=== PATIENT | male | born 1970 | race Caucasian/White ===

== ENCOUNTER 2016-11-26 16:44 | Emergency (ER) | payer BC ==
[2016-11-26 16:50] VITALS: BP 120/72
[2016-11-26] MEDS ORDERED: Tetan/Diph/Pertus SYR(Tdap)* 0.5 ML SYR(BOOSTRIX) use SYR IM ONE (16:58)
[2016-11-26] MEDS ORDERED: Lidocaine/Epineph/Tetraca SOL* (LET solution) 4 ML BTL TOPICAL ONE (17:05)
--- NOTE | 2016-11-26 17:59 | UC ---
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 NO PAIN WITH WEIGHT BEARING. TETANUS UNKNOWN - History Of Current Complaint Chief Complaint: UCLaceration Stated Complaint: LEG LAC Time Seen by Provider: 11/26/16 16:45 Hx Obtained From: Patient Mechanism Of Injury: Blunt Trauma Onset/Duration: Sudden Onset, Lasting Hours, Still Present Severity: Mild Aggravating Factors: Nothing - Allergies/Home Medications Allergies/Adverse Reactions: Allergies Allergy/AdvReac Type Severity Reaction Status Date / Time Penicillins [PCN] Allergy Unknown Verified 11/26/16 16:50 Reaction Details Home Medications: Home Medications NK [No Home Medications Reported] 11/26/16 [History Confirmed 11/26/16] PMH/Surg Hx/FS Hx/Imm Hx Previously Healthy: Yes - Surgical History Surgical History: Yes Surgery Procedure, Year, and Place: T&A - Family History Known Family History: Negative: Blood Disorder - Social History Occupation: Employed Full-time Lives: With Family Alcohol Use: Occasionally Substance Use Type: Marijuana Substance Use Comment - Amount & Last Used: WEEKLY Smoking Status (MU): Never Smoked Tobacco Review of Systems Constitutional: Negative Skin: Other - LACERATION LEFT LEG Eyes: Negative ENT: Negative Respiratory: Negative Cardiovascular: Negative Gastrointestinal: Negative Genitourinary: Negative Motor: Negative Neurovascular: Negative Musculoskeletal: Negative Neurological: Negative Psychological: Negative All Other Systems Reviewed And Are Negative: Yes Physical Exam Triage Information Reviewed: Yes Appearance: Well-Appearing, No Pain Distress, Well-Nourished Vital Signs: Initial Vital Signs Temp 98.4 F 11/26/16 16:47 Pulse 77 11/26/16 16:47 Resp 18 11/26/16 16:47 BP 120/72 11/26/16 16:47 Pulse Ox 100 11/26/16 16:47 Vital Signs Reviewed: Yes Eye Exam: Normal ENT Exam: Normal Dental Exam: Normal Neck exam: Normal Neck: Positive: Supple, Nontender Respiratory Exam: Normal Respiratory: Positive: Chest non-tender, Lungs clear, Normal breath sounds Cardiovascular Exam: Normal Cardiovascular: Positive: RRR, No Murmur Abdominal Exam: Normal Musculoskeletal Exam: Normal Musculoskeletal: Positive: Strength Intact, ROM Intact Neurological Exam: Normal Psychological Exam: Normal Skin: Positive: Other - LACERATION LEFT ANTERIOR LEG Laceration Repair - Laceration Repair 1 Description: Linear Laceration Size After Repair: Length (cm) - 4, Width (mm) - 3, Depth (mm) - 3 Type Injection: Local - LET TOPICAL Cleansing Completed Via Routine Prep: Yes Irrigation With Pressure Irrigation Device: Yes Closure Material: [place] - 4 Suture Of: Skin, SQ Laceration Course/Dx - Differential Dx - Laceration/Wound Differental Diagnoses: Cellulitis, Fracture, Laceration, Tendon Laceration Provider Diagnoses: LACERATION LEFT ANTERIOR LEG WITH REPAIR; TETANUS PROPHYLAXIS Discharge - Discharge Plan Condition: Stable Disposition: HOME Patient Education Materials: Laceration (ED), Staple Care (ED) Referrals: [facility] [Outside] No Primary Care Phys,NOPCP [Primary Care Provider] - Additional Instructions: PLEASE HAVE SUHAIL REMOVED IN TEN DAYS
== END 2016-11-26 17:50 | disposition home or self-care (01) ==
LOC: UCEAST 16:44
DX: S81.812A Laceration without foreign body, left lower leg, initial encounter (principal); W19.XXXA Unspecified fall, initial encounter; Y93.89 Activity, other specified; Y92.9 Unspecified place or not applicable; Z23 Encounter for immunization; Z88.0 Allergy status to penicillin; F12.90 Cannabis use, unspecified, uncomplicated
CPT/HCPCS: 12002; 90471; 90715; 99201; G0463

== ENCOUNTER 2016-12-07 10:33 | Emergency (ER) | payer BC ==
[2016-12-07 10:55] VITALS: BP 121/73
--- NOTE | 2016-12-07 13:01 | UC ---
Laceration HPI - HPI Summary HPI Summary: pt sustained lac 11 days ago while getting onto his boat. 4 jasiel were placed here 11 days ago. pt here for removal. no f/c/redness, swelling increased pain, heat or drainage. pt is slightly anxious that jasiel will hurt as much coming out as they did will going in. - History Of Current Complaint Chief Complaint: UCSkin Stated Complaint: STAPLE REMOVAL Time Seen by Provider: 12/07/16 11:13 Hx Obtained From: Patient Laceration Location: Wrist - butts Mechanism Of Injury: Sharp Trauma Onset/Duration: Sudden Onset Severity: Moderate Pain Intensity: 0 Pain Scale Used: 0-10 Numeric Aggravating Factors: Nothing - Allergies/Home Medications Allergies/Adverse Reactions: Allergies Allergy/AdvReac Type Severity Reaction Status Date / Time Penicillins [PCN] Allergy Unknown Verified 12/07/16 10:53 Reaction Details PMH/Surg Hx/FS Hx/Imm Hx Previously Healthy: Yes - Surgical History Surgical History: Yes Surgery Procedure, Year, and Place: T&A - Family History Known Family History: Positive: Hypertension Negative: Cardiac Disease, Diabetes, Blood Disorder - Social History Occupation: Employed Full-time Lives: With Family Alcohol Use: Occasionally Substance Use Type: Marijuana Substance Use Comment - Amount & Last Used: WEEKLY Smoking Status (MU): Never Smoked Tobacco Review of Systems Constitutional: Negative Skin: Other - healing lac Respiratory: Negative Cardiovascular: Negative Gastrointestinal: Negative Neurological: Negative All Other Systems Reviewed And Are Negative: Yes Physical Exam Triage Information Reviewed: Yes Appearance: Well-Appearing, No Pain Distress, Well-Nourished Vital Signs: Initial Vital Signs Temp 97.8 F 12/07/16 10:53 Pulse 77 12/07/16 10:53 Resp 16 12/07/16 10:53 BP 121/73 12/07/16 10:53 Pulse Ox 100 12/07/16 10:53 Vital Signs Reviewed: Yes Eyes: Positive: Conjunctiva Clear. Negative: Discharge ENT: Positive: Hearing grossly normal. Negative: Muffled/hoarse voice Neck: Positive: Supple Respiratory: Positive: Lungs clear, Normal breath sounds, No respiratory distress, No accessory muscle use Cardiovascular: Positive: RRR, No Murmur Musculoskeletal Exam: Normal Neurological: Positive: Alert, Muscle Tone Normal Psychological: Positive: Age Appropriate Behavior Skin: Positive: Other - 4 jasiel removed without complication from at rt butts. wound edges are clean, dry, well approximated. no redness, drainage, swelling , calor or dehiscience noted. Laceration Course/Dx - Differential Dx - Laceration/Wound Provider Diagnoses: staple removal Discharge - Discharge Plan Condition: Stable Disposition: HOME Patient Education Materials: Stitches Removal (ED) Referrals: No Primary Care Phys,NOPCP [Primary Care Provider] -
== END 2016-12-07 11:40 | disposition home or self-care (01) ==
LOC: UCEAST 10:33
DX: Z48.02 Encounter for removal of sutures (principal); F12.10 Cannabis abuse, uncomplicated

== ENCOUNTER 2018-08-14 10:35 | Emergency (ER) | payer BC ==
[2018-08-14] MEDS ORDERED: Ondansetron INJ* 2 MG/ML VIAL IV ONE (10:52)
[2018-08-14] MEDS ORDERED: Ketorolac INJ* 30 MG/ML 1 ML VIAL IV PUSH ONE (10:52)
[2018-08-14] MEDS ORDERED: NS 0.9% 1000 ML** 1,000 ML IV ONE (10:52)
[2018-08-14] MEDS ORDERED: Morphine 4 MG/ML VIAL (1 ml) 4 MG/ML VIAL IV ONE (10:53)
--- NOTE | 2018-08-14 10:58 | ED ---
Back Pain - HPI Summary HPI Summary: Pt. is a 47 y.o male who presents to the ER for right flank pain that started acutely this morning. Pt. states he was not feeling well yesterday and then today developed severe right flank pain and vomiting. Denies chest pain, SOB, fever. Notes his urine was darker this past week. No past medical hx. Sxs are moderate in severity. Pain is constant without modifying factors. - History of Current Complaint Chief Complaint: EDFlankPain Stated Complaint: I THINK I HAVE APPENDICITIS PER PT Time Seen by Provider: 08/14/18 10:46 Pain Intensity: 10 - Allergies/Home Medications Allergies/Adverse Reactions: Allergies Allergy/AdvReac Type Severity Reaction Status Date / Time Penicillins Allergy Unknown See Comment Verified 08/16/18 09:31 pseudoephedrine Allergy Unknown Unknown Verified 08/16/18 09:31 [From Sudafed] Reaction Details Sulfa (Sulfonamide Allergy Unknown Unknown Verified 08/16/18 09:31 Antibiotics) Reaction Details PMH/Surg Hx/FS Hx/Imm Hx Previously Healthy: Yes - Surgical History Surgery Procedure, Year, and Place: T&A Infectious Disease History: No Infectious Disease History: Denies: History Other Infectious Disease, Traveled Outside the [place] in Last 30 Days - Family History Known Family History: Positive: Hypertension Negative: Cardiac Disease, Diabetes, Blood Disorder - Social History Occupation: Employed Full-time Lives: With Family Alcohol Use: Occasionally Substance Use Type: Reports: Marijuana Substance Use Comment - Amount & Last Used: WEEKLY Smoking Status (MU): Never Smoked Tobacco Review of Systems Constitutional: Negative Negative: Fever, Chills Cardiovascular: Negative Negative: Palpitations, Chest Pain Respiratory: Negative Negative: Shortness Of Breath, Cough Positive: Abdominal Pain, Vomiting, Nausea. Negative: Diarrhea Positive: other - dark urine All Other Systems Reviewed And Are Negative: Yes Physical Exam Triage Information Reviewed: Yes Vital Signs On Initial Exam: Initial Vitals Temp Pulse Resp BP Pulse Ox 96.5 F 58 19 140/82 100 08/14/18 10:35 08/14/18 10:35 08/14/18 10:35 08/14/18 10:35 08/14/18 10:35 Vital Signs Reviewed: Yes Appearance: Positive: Pain Distress - Pt. moving around on stretcher, very uncomfortable. present. Nontoxic. Skin: Positive: Warm, Dry Head/Face: Positive: Normal Head/Face Inspection Eyes: Positive: Normal, EOMI, [place] Neck: Positive: Supple Respiratory/Lung Sounds: Positive: Clear to Auscultation, Breath Sounds Present Cardiovascular: Positive: Normal, RRR Abdomen Description: Positive: Nontender, Soft, Other: - Right CVA tenderness Neurological: Positive: Normal, CN Intact II-III Psychiatric: Positive: Affect/Mood Appropriate Diagnostics - Vital Signs Vital Signs Temp Pulse Resp BP Pulse Ox 08/14/18 10:35 96.5 F 58 19 140/82 100 - Laboratory Result Diagrams: 08/14/18 11:29 08/14/18 11:28 Lab Statement: Any lab studies that have been ordered have been reviewed, and results considered in the medical decision making process. Back Pain Course/Dx - Course Course Of Treatment: Pt. presenting with severe right flank pain and N/V. Suspect urolithiasis. Pt. started on IV fluids and pain medications. Pending labs and CT scan. CT scan shows 1. right proximal ureteral stone with hydro, 2. diverticulosis, 3. enlraged prostate. Labs are unremarkable. U/S shows RBCs without signs of infection. On re-exam pt. is resting comfortably and pain has greatly improved. Results discussed. Will dc home with percocet, flomax and zofran. To strain urine. Increase fluids. TO f.u with uro. if pain persist. To return to ER for uncontrollable pain, vomiting, fever, or if concerned. Pt. and understand and agree with plan. - Diagnoses Differential Diagnosis/HQI/PQRI: Positive: Renal Colic, Strain, Sprain Provider Diagnoses: Urolithiasis, Hydronephrosis Discharge - Sign-Out/Discharge Documenting (check all that apply): Patient Departure Patient Received Moderate/Deep Sedation with Procedure: No - Discharge Plan Condition: Improved Disposition: HOME Prescriptions: Ondansetron TAB* [Zofran 4 MG Tab*] 4 mg PO Q6H PRN #12 tab PRN Reason: Nausea oxyCODONE/Acetamin 5/325 MG* [Percocet 5/325 TAB*] 1 tab PO Q6H PRN #12 tab MDD 4 PRN Reason: Pain Tamsulosin CAP* [Flomax CAP*] 0.4 mg PO DAILY #5 cap Patient Education Materials: Kidney Stones (ED) Referrals: Mary Alice Lucio MD [Primary Care Provider] - Ming Antonio MD [Medical Doctor] - Additional Instructions: Follow up with urology if pain persist Strain urine Medication as directed Increase fluids Return to ER for uncontrollable pain/vomiting, fever, or if concerned - Billing Disposition and Condition Condition: IMPROVED Disposition: Home
[2018-08-14 11:49] LABS: ABS Basophils 0.1 10^3/ul (0-0.2); ABS Eosinophils 0.3 10^3/ul (0-0.6); ABS Lymphocytes 0.9 10^3/ul (1.0-4.8); ABS Monocytes 0.6 10^3/ul (0-0.8); ABS Neutrophils 8.7 10^3/ul (1.5-7.7); ABS Nucleated RBC 0 10^3/ul; Eosinophil % 2.4 %; Hematocrit 43 % (42-52); Hemoglobin 14.4 g/dL (14.0-18.0); Mean Corpuscular HGB Conc 33 g/dL (31-36); Mean Corpuscular Hemoglobin 31 pg (27-31); Mean Corpuscular Volume 92 fL (80-94); Mean Platelet Volume 8.4 fL (7.4-10.4); Nucleated Red Blood Cells % 0; Platelet Count 259 10^3/uL (150-450); Red Blood Count 4.72 10^6 /uL (4.18-5.48); Red Cell Distribution Width 13 % (10.5-15); White Blood Count 10.6 10^3/uL (3.5-10.8)
[2018-08-14 11:53] LABS: ALT 11 U/L (7-52); AST 14 U/L (13-39); Albumin 4.3 g/dL (3.2-5.2); Albumin/Globulin Ratio 1.9 (1-3); Alkaline Phosphatase 46 U/L (34-104); Anion Gap 6 mmol/L (2-11); BUN/Creatinine Ratio 13.6 (8-20); Blood Urea Nitrogen 14 mg/dL (6-24); C Reactive Protein < 1.00 mg/L (<8.01); CO2 Carbon Dioxide 27 mmol/L (22-32); Calcium 9.1 mg/dL (8.6-10.3); Chloride 110 mmol/L (101-111); EGFR African American 92.9 (>60); EGFR Non-African American 76.8 (>60); Globulin 2.3 g/dL (2-4); Glucose 120 mg/dL (70-100); Potassium 4.5 mmol/L (3.5-5.0); Sodium 143 mmol/L (135-145); Total Protein 6.6 g/dL (6.4-8.9)
[2018-08-14 13:18] LABS: Urine Appearance Turbid; Urine Bacteria Absent (Absent); Urine Bilirubin Negative (Negative); Urine Blood 3+ (Negative); Urine Color Amber; Urine Glucose Negative (Negative); Urine Ketones Trace (Negative); Urine Nitrite Negative (Negative); Urine Protein 2+(100 mg/dL) (Negative); Urine Red Blood Cell 3+(>10/hpf) (Absent); Urine Specific Gravity 1.024 (1.010-1.030); Urine Urobilinogen Negative (Negative); Urine White Blood Cell Absent (Absent)
[2018-08-14 13:47] VITALS: BP 108/67
== END 2018-08-14 13:46 | disposition home or self-care (01) ==
LOC: ED 10:35
DX: N13.2 Hydronephrosis with renal and ureteral calculous obstruction (principal); K57.90 Diverticulosis of intestine, part unspecified, without perforation or abscess without bleeding; N40.0 Benign prostatic hyperplasia without lower urinary tract symptoms; Z88.0 Allergy status to penicillin; Z88.2 Allergy status to sulfonamides
CPT/HCPCS: 36415; 74176; 80053; 81003; 81015; 85025; 86140; 96361; 96374; 96375; 99283; J1885; J2405

== ENCOUNTER 2018-08-16 08:34 | Day surgery (SDC) | payer BC ==
--- NOTE | 2018-08-16 07:04 | HP ---
CC: Dr. Lucio * ADMITTING HISTORY AND PHYSICAL: DATE OF ADMISSION: 08/16/18 ADMITTING DIAGNOSES: 1. Calculus, right proximal ureter. 2. Right hydronephrosis. PLANNED PROCEDURE: Right stent insertion (probably to be followed in the near future by lithotripsy). SURGEON: Dr. Smiley. HISTORY OF PRESENT ILLNESS: Chuck Lroa is a 47-year-old gentleman, who had been evaluated in the emergency room for right flank pain and nausea. He was noted to have a 5-mm calculus causing right hydronephrosis and located in the proximal right ureter. He has had continued episodic pain requiring use of Percocet and I gave him the option of trying to wait to see if he is able to pass the calculus or have a stent placed followed by lithotripsy. He would like to go ahead and proceed with the stent placement followed by lithotripsy in the near future. PAST MEDICAL HISTORY: Significant for history of lower back pain. PAST SURGICAL HISTORY: Significant for tonsillectomy. MEDICATIONS: On admission: 1. Flomax 0.4 mg once a day. 2. Percocet p.r.n. ALLERGIES: PENICILLIN and SULFA (he is not sure of the reaction, but was told ever since he was a child that he was allergic to them). FAMILY HISTORY: Negative for stones. SOCIAL HISTORY: Smoking history: He is a nonsmoker. REVIEW OF SYSTEMS: He denies any chest pain or shortness of breath. There is no history of diabetes mellitus or any other major systemic illness. PHYSICAL EXAMINATION GENERAL: Reveals a pleasant, middle-aged gentleman, who is in moderate discomfort. VITAL SIGNS: Blood pressure is 138/80, pulse 89 per minute and regular, temperature 96.6, oxygen saturation 98% on room air. LUNGS: Clear bilaterally. CARDIOVASCULAR: Regular rate and rhythm. S1, S2. ABDOMEN: Soft with mild right flank tenderness. IMPRESSION AND PLAN: An x-ray was obtained, which showed no significant change in the position of the calculus compared with the CT. Once again, I offered him the option of trying conservative management and staying with the Flomax and hydration and analgesics, and after a thorough discussion, he elected to proceed with a right stent insertion to be followed at some point in the future by lithotripsy. [id number]/[facility] #: [id number] [facility] HOSPITALStephani
[~2018-08-16 08:34] MED LIST: Buffered Lidocaine 1% SYRIN* 1 ML/SYRINGE INTRADERM ONE; Dexamethasone TAB* 4 MG PO ONE; Famotidine IV* 10 MG/ML 2 ML (20 mg) IV ONE; Lactated Ringers 1000 ML Bag* 1,000 ML IV SCH; Ondansetron INJ* 2 MG/ML VIAL ONE
[2018-08-16] MEDS ORDERED: Dexamethasone TAB* 4 MG ONE (08:55)
[2018-08-16] MEDS ORDERED: Ondansetron ODT TAB* 4 MG ONE (08:55)
[2018-08-16] MEDS ORDERED: Buffered Lidocaine 1% SYRIN* 1 ML/SYRINGE INTRADERM ONE (08:56)
[2018-08-16] MEDS ORDERED: Famotidine IV* 10 MG/ML 2 ML (20 mg) ONE (08:56)
[2018-08-16] MEDS ORDERED: Levofloxacin 500 MG IVPREMIX(* 500 MG/100 ML BAG IVPB ONE (09:26)
[2018-08-16] MEDS ORDERED: fentaNYL* 50 MCG/ML 2 ML VIAL (100 MCG VIAL) ONE (10:38)
[2018-08-16] MEDS ORDERED: Midazolam* 1 MG/ML 5 ML VIAL (5 MG) ONE (10:38)
[2018-08-16] MEDS ORDERED: KETAMINE HCL* 50 MG/ML 10 ML VIAL ONE (10:40)
[2018-08-16] MEDS ORDERED: Lidocaine 2% PF * 5 ML VIAL ONE (11:26)
[2018-08-16] MEDS ORDERED: Propofol* 10 MG/ML 20 ML BTL ONE (11:26)
[2018-08-16] MEDS ORDERED: Ketorolac INJ* 30 MG/ML 1 ML VIAL ONE (11:26)
[2018-08-16] MEDS ORDERED: Iohexol 180 (CONTRAST) 10 ML SDV IV ONE (11:30)
[2018-08-16] MEDS ORDERED: Naloxone* 0.4 MG/ML 1 ML VIAL IV PRN (11:48)
[2018-08-16] MEDS ORDERED: DiMENhydriNATE IV* 50 MG/ML VIAL IV PUSH PRN (11:48)
[2018-08-16] MEDS ORDERED: PROCHLORPERAZINE INJ 5 MG/ML 2 ML VIAL IV PRN (11:48)
[2018-08-16] MEDS ORDERED: fentaNYL* 50 MCG/ML 2 ML VIAL (100 MCG VIAL) IV PRN (11:48)
[2018-08-16] MEDS ORDERED: oxyCODONE/Acetamin 5/325 MG* TAB PO PRN (11:48)
[2018-08-16] MEDS ORDERED: Morphine 4 MG/ML VIAL (1 ml) 4 MG/ML VIAL IV PRN (11:48)
[2018-08-16] MEDS ORDERED: Tamsulosin CAP* 0.4 MG ONE (12:26)
[2018-08-16 12:44] VITALS: BP 103/66
--- NOTE | 2018-08-16 21:38 | OP ---
CC: Dr. Mary Alice Lucio * DATE OF OPERATION: 08/16/18 - SDS DATE OF : 66 SURGEON: Dr. Smiley. ANESTHESIOLOGIST: Dr. Faulkner. ANESTHESIA: General. PRE-OP DIAGNOSES: 1. Right hydronephrosis. 2. Calculus, right proximal ureter. POST-OP DIAGNOSES: 1. Right hydronephrosis. 2. Calculus, right proximal ureter. OPERATIVE PROCEDURES: 1. Cystoscopy. 2. Right retrograde pyelogram. 3. Right stent insertion. COMPLICATIONS: None. STENT USED: 6-Singaporean stent, right ureter. POSTOPERATIVE CONDITION: Stable. OPERATIVE FINDINGS: 1. Mildly to moderately enlarged prostate. 2. Right hydronephrosis with proximal hydroureter. INDICATIONS: Chuck Lora is a 47-year-old gentleman who has had right flank pain and nausea secondary to an approximately 5 mm calculus in the right proximal ureter. I discussed options and management with him including continuing conservative management, but he elected to come in for right stent insertion to be followed at some point in the near future by lithotripsy. DESCRIPTION OF PROCEDURE: After induction of general anesthesia, patient was placed in dorsal lithotomy position. Sequential compression devices were in place and functioning. Initial cystoscopy revealed a normal-appearing urethra. The prostate was mildly to moderately enlarged and the bladder appeared unremarkable. A guidewire was introduced into the right ureter. Retrograde pyelogram revealed right hydronephrosis and proximal hydroureter. A 6-Singaporean stent was introduced and positioned under fluoroscopy with good proximal and distal positioning obtained. I could not readily visualize the calculus on fluoroscopy, so the plan is to obtain an x-ray at the end of the procedure to try and determine the final location of the calculus. The patient tolerated the procedure satisfactorily and was transferred back to the recovery area in stable condition. [id number]/[facility] #: [id number] MTDD
== END 2018-08-16 12:46 | disposition home or self-care (01) ==
LOC: OR 08:34
PROVIDERS: ATTEND Urology
DX: N13.2 Hydronephrosis with renal and ureteral calculous obstruction (principal); M54.5 Low back pain
CPT/HCPCS: 74018; 76000; A9270-GY; C1876; J1885; J1956; J2250; J2704; J3010; J8540

== ENCOUNTER 2018-08-26 15:05 | Day surgery (SDC) | payer BC ==
[~2018-08-26 15:05] MED LIST changes: +Dexamethasone IV* 4 MG/ML 1 ML (4 MG) IV SLOW PU ONE; +Dexamethasone IV* 4 MG/ML 1 ML (4 MG) ONE; -Dexamethasone TAB* 4 MG PO ONE; +DiMENhydriNATE IV* 50 MG/ML VIAL IV PUSH PRN; +Famotidine IV* 10 MG/ML 2 ML (20 mg) ONE; +Gentamicin ADULT (*) 160 MG in NS 0.9% 100 ML* 100 ML IVPB ONE; +Morphine 4 MG/ML VIAL (1 ml) 4 MG/ML VIAL IV PRN; +Naloxone* 0.4 MG/ML 1 ML VIAL IV PRN; +Ondansetron ODT TAB* 4 MG ONE; +PROCHLORPERAZINE INJ 5 MG/ML 2 ML VIAL IV PRN; +fentaNYL* 50 MCG/ML 2 ML VIAL (100 MCG VIAL) IV PRN; +oxyCODONE/Acetamin 5/325 MG* TAB PO PRN
[2018-08-26] MEDS ORDERED: KETAMINE HCL* 50 MG/ML 10 ML VIAL ONE (15:38)
[2018-08-26] MEDS ORDERED: fentaNYL* 50 MCG/ML 2 ML VIAL (100 MCG VIAL) ONE (17:00)
[2018-08-26] MEDS ORDERED: Midazolam* 1 MG/ML 5 ML VIAL (5 MG) ONE (17:00)
[2018-08-26] MEDS ORDERED: Lidocaine 2% PF * 5 ML VIAL ONE (17:49)
[2018-08-26] MEDS ORDERED: Furosemide IV* 10 MG/ML 2 ML VIAL (20 MG) ONE ×2 (18:39→19:33)
[2018-08-26 20:32] VITALS: BP 122/76
--- NOTE | 2018-08-27 | OP ---
CC: Dr. Mary Alice Lucio * DATE OF OPERATION: 08/26/18 - [facility] DATE OF : 66 SURGEON: Dr. Smiley. ANESTHESIOLOGIST: Dr. Faulkner. ANESTHESIA: General. PRE-OP DIAGNOSES: 1. Right hydronephrosis. 2. Calculus, right proximal ureter. POST-OP DIAGNOSES: 1. Right hydronephrosis. 2. Calculus, right proximal ureter. OPERATIVE PROCEDURE: 1. Shockwave lithotripsy of calculus, right ureter. 2. Cystoscopy, right stent removal. 3. Right retrograde pyelogram. 4. Right ureteroscopy and stone extraction. COMPLICATIONS: None. OPERATIVE FINDINGS: A 5 to 6 mm calculus, right proximal ureter with right hydronephrosis. INDICATIONS: Chuck Lora is a 47-year-old gentleman who had undergone urgent right stent insertion for an obstructing calculus in the right proximal ureter. DESCRIPTION OF PROCEDURE: After induction of general anesthesia, patient was placed on the lithotripsy table in supine position. The calculus, which was faintly visible in the proximal ureter adjacent to the stent was visualized on fluoroscopy, and shockwave lithotripsy was commenced at a rate of 90 shocks per minute. A total of 600 shocks were administered and after this, it was difficult to visualize the calculus. Next, the patient was placed in dorsal lithotomy position and cystoscopy was performed. The previously placed stent was removed. Right retrograde pyelogram revealed right hydronephrosis. A 6-Angolan semi-rigid ureteroscope was introduced and advanced under direct vision. In the proximal ureter, several fragments of the calculus were noted, the largest being about 3 to 4 mm in size. Using multiple passes of the ureteroscope, all of the fragments were retrieved and removed into the bladder from where they were later removed and sent for analysis. The ureteroscope was advanced all the way up into the renal pelvis and I did not visualize any remaining sizable fragments. Mild mucosal inflammatory response was noted probably due to a combination of impaction of the calculus, the stent, and possibly the lithotripsy. I was originally going to go ahead and place a stent at the end of the procedure; however, the patient was given 5 mg of Lasix intravenously and urine was seen effluxing freely from the right orifice, so I elected to hold off on a stent replacement. The bladder was emptied. The patient tolerated the procedure satisfactorily and was transferred back to the recovery area in stable condition. [id number]/[facility] #: [id number] YANETH
== END 2018-08-26 20:33 | disposition home or self-care (01) ==
LOC: OR 15:05
PROVIDERS: ATTEND Urology
DX: N13.2 Hydronephrosis with renal and ureteral calculous obstruction (principal)
CPT/HCPCS: 74018; 82365; 88300; A9270-GY; J1100; J1580; J1940; J2250; J3010